=== PATIENT | female | born 1980 | race Native Hawaiian/Other Pacific Islander ===

== ENCOUNTER 2017-06-24 08:48 | Outpatient (CLI) | payer BC ==
[~2017-06-24 08:48] MED LIST: ACET5TAB36 PO; ACET7.5T70 PO; ALPR0.5T24 PO; DEXL60CA4 PO; DICL1GEL2 TOP; EQ IBUPROFEN200 M1 OR; FLEXERIL5 MG PO; MEDROL DOSEPAK4 MG OR; TRISPRINTEC PO
== END 2017-06-24 19:06 | disposition home or self-care (01) ==
LOC: RAD 08:48
DX: M79.642 Pain in left hand (principal)

== ENCOUNTER 2017-09-24 08:09 | Outpatient (CLI) | payer BC | END 2017-09-24 19:37 | disposition home or self-care (01) | LOC: CT 08:09 | DX: R10.84 Generalized abdominal pain (principal) | CPT/HCPCS: Q9963 ==

== ENCOUNTER 2018-06-18 11:43 | Emergency (ER) | payer BC ==
[~2018-06-18] VITALS: Ht 170.2 cm; Wt 97.5 kg
[2018-06-18 12:00] VITALS: TEMP 97.9
[2018-06-18 13:00] LABS: PLATELET COUNT 269 K/uL (152-353)
[2018-06-18 13:11] LABS: POTASSIUM 4.1 mmol/L (3.6-5.2)
[2018-06-18 14:40] VITALS: BP 145/84
== END 2018-06-18 14:40 | disposition home or self-care (01) ==
LOC: ED 11:43
PROVIDERS: Family Medicine
DX: R10.819 Abdominal tenderness, unspecified site (principal); K56.7 Ileus, unspecified; N39.0 Urinary tract infection, site not specified; K59.09 Other constipation
CPT/HCPCS: 80053; 81000; 85027; 96360; 96375; 99284; J2270

== ENCOUNTER 2020-08-28 10:54 | Outpatient (CLI) | payer BC, OTHER | END 2020-08-28 23:59 | disposition home or self-care (01) | LOC: INF 10:54 | PROVIDERS: ATTEND Internal Medicine | DX: Z23 Encounter for immunization (principal) | CPT/HCPCS: 96372 ==

== ENCOUNTER 2020-09-25 10:13 | Outpatient (CLI) | payer BC, OTHER | END 2020-09-25 21:46 | disposition home or self-care (01) | LOC: INF 10:13 | PROVIDERS: ATTEND Internal Medicine | DX: Z23 Encounter for immunization (principal) | CPT/HCPCS: 96372 ==

== ENCOUNTER 2022-09-25 08:20 | Outpatient (CLI) | payer BC | END 2022-09-25 21:18 | disposition home or self-care (01) | LOC: MAMMO 08:20 | PROVIDERS: ATTEND Obstetrics & Gynecology | DX: Z12.31 Encounter for screening mammogram for malignant neoplasm of breast (principal) ==

== ENCOUNTER 2022-10-19 14:20 | Outpatient (CLI) | payer BC | END 2022-10-19 19:22 | disposition home or self-care (01) | LOC: MAMMO 14:20 | PROVIDERS: ATTEND Obstetrics & Gynecology | DX: R92.2 Inconclusive mammogram (principal) ==